=== PATIENT | female | born 1960 | race African-American/Black ===

== ENCOUNTER 2022-05-11 09:27 | Emergency (ER) | payer MEDICARE, MEDICAID ==
[~2022-05-11] VITALS: Ht 152.4 cm; Wt 97.0 kg
[2022-05-11 09:32] VITALS: BP 172/71
== END 2022-05-11 12:23 | disposition left against medical advice (07) ==
LOC: ER 09:27
DX: Z53.21 Procedure and treatment not carried out due to patient leaving prior to being seen by health care provider (principal)

== ENCOUNTER 2022-10-08 11:46 | Emergency (ER) | payer MEDICARE, MEDICAID ==
[~2022-10-08] VITALS: Ht 152.4 cm; Wt 99.0 kg
[2022-10-08 12:01] VITALS: BP 154/83; PULSE 93; RESP 20; TEMP 98.1; O2SAT 100
[2022-10-08] MEDS ORDERED: TETRACAINE 0.5% OPHTH DROPS 4ML RIGHTEYE ONE (12:15)
[2022-10-08] MEDS ORDERED: FLUORESCEIN SODIUM 1MG/STRIP RIGHTEYE ONE (12:15)
[2022-10-08] MEDS ORDERED: ERYT1OIN6 LEFTEYE (13:19)
== END 2022-10-08 13:36 | disposition home or self-care (01) ==
LOC: ER 12:26
DX: S05.02XA Injury of conjunctiva and corneal abrasion without foreign body, left eye, initial encounter (principal); X58.XXXA Exposure to other specified factors, initial encounter; Y93.89 Activity, other specified; Y92.89 Other specified places as the place of occurrence of the external cause; Y99.8 Other external cause status
CPT/HCPCS: 99283